=== PATIENT | male | born 1970 | race Caucasian/White ===

== ENCOUNTER 2017-05-31 19:45 | Emergency (ER) | payer OTHER ==
[2017-05-31 20:01] VITALS: BP 125/77; PULSE 65; TEMP 97.9; BMI 24.2
[2017-05-31] MEDS ORDERED: MAG HYDROX/AL HYDROX/SIMETH 30 ML UNIT-DOSE CUP PO ONE (20:03)
--- NOTE | 2017-05-31 20:03 | PDOC ---
Rapid Medical Evaluation Time Seen by Provider: 05/31/17 19:58 Medical Evaluation: Allergies Allergy/AdvReac Type Severity Reaction Status Date / Time No Known Allergies Allergy Verified 05/31/17 19:58 Vital Signs Temp Pulse Resp BP Pulse Ox 97.9 F 65 18 125/77 100 05/31/17 19:58 05/31/17 19:58 05/31/17 19:58 05/31/17 19:58 05/31/17 19:58 05/31/17 20:01 I have performed a brief in-person evaluation of the patient. The patient presents with chief complaint of: abdominal discomfort with nausea and dizziness x 4 days. Reports nausea but no vomiting, diarrhea or constipation. DEscribes stomach discomfort as burning Pertinent physical exam findings are: NAD lungs clear bilaterally abdominal tenderness in epigastric area I have ordered the following: cbc cmp saline lock The patient will proceed to the ED for further evaluation. 05/31/17 21:02
[2017-05-31] MEDS ORDERED: SODIUM CHLORIDE 1,000 ML IV STA (22:40)
[2017-05-31] MEDS ORDERED: ONDANSETRON 4 MG/2 ML VIAL IVPUSH STA (22:40)
--- NOTE | 2017-05-31 22:40 | PDOC ---
History of Present Illness - General History Source: Patient Exam Limitations: No Limitations - History of Present Illness Initial Comments: 05/31/17 23:51 The pt is a 47 yo M with PMHX of Pre-Diabetes who presents to the ED with abdominal pain for the past 4 days. Patient reports LUQ abdominal pain which he describes as burning associated with nausea. Patient denies taking any medications for relief and presents to the ED for further evaluation. Patient reports minimal EtOH use however denies smoking or IVDA. Patient denies chest pain, headache or dizziness. Patient denies fever, chills, vomit, diarrhea or constipation. Patient denies dysuria, frequency, urgency or hematuria. Patient denies sick contacts or recent travel. <Jovita Nieves - Last Filed: 06/01/17 01:48> <Perla Barraza - Last Filed: 06/01/17 01:53> - General Chief Complaint: Pain Stated Complaint: Lightheaded Time Seen by Provider: 05/31/17 19:58 Past History <Jovita Nieves - Last Filed: 06/01/17 01:48> - Past Medical History COPD: No Diabetes: Yes (pre-diabetic) - Suicide/Smoking/Psychosocial Hx Smoking Status: No Smoking History: Never smoked Number of Cigarettes Smoked Daily: 0 <Perla Barraza - Last Filed: 06/01/17 01:53> - Past Medical History Allergies/Adverse Reactions: Allergies Allergy/AdvReac Type Severity Reaction Status Date / Time No Known Allergies Allergy Verified 05/31/17 19:58 Home Medications: Ambulatory Orders No Home Medications 0 dose .ROUTE UTDICT 06/16/12 Omeprazole 20 mg PO DAILY #7 tablet. 06/01/17 Ondansetron [Zofran Odt -] 4 mg SL TID PRN #12 od.tablet 06/01/17 Review of Systems - Review of Systems Able to Perform ROS?: Yes Comments:: 06/01/17 00:01 CONSTITUTIONAL: Absent: fever, chills, diaphoresis, generalized weakness, malaise, loss of appetite HEENT: Absent: rhinorrhea, nasal congestion, throat pain, throat swelling, difficulty swallowing, mouth swelling, ear pain, eye pain, visual changes CARDIOVASCULAR: Absent: chest pain, syncope, palpitations, irregular heart rate, lightheadedness , peripheral edema RESPIRATORY: Absent: cough, shortness of breath, dyspnea with exertion, orthopnea, wheezing, stridor, hemoptysis GASTROINTESTINAL: +abdominal pain, nausea Absent: abdominal distension, vomiting, diarrhea, constipation, melena, hematochezia GENITOURINARY: Absent: dysuria, frequency, urgency, hesitancy, hematuria, flank pain, genital pain MUSCULOSKELETAL: Absent: myalgia, arthralgia, joint swelling SKIN: Absent: rash, itching, pallor HEMATOLOGIC/IMMUNOLOGIC: Absent: easy bleeding, easy bruising, lymphadenopathy, frequent infections ENDOCRINE: Absent: unexplained weight gain, unexplained weight loss, heat intolerance, cold intolerance NEUROLOGIC: Absent: headache, focal weakness or paresthesias, dizziness, unsteady gait, seizure, mental status changes, bladder or bowel incontinence PSYCHIATRIC: Absent: anxiety, depression, suicidal or homicidal ideation, hallucinations. <Jovita Nieves - Last Filed: 06/01/17 01:48> *Physical Exam - Vital Signs Last Vital Signs Temp Pulse Resp BP Pulse Ox 97.9 F 65 18 125/77 100 05/31/17 19:58 05/31/17 19:58 05/31/17 19:58 05/31/17 19:58 05/31/17 19:58 - Physical Exam Comments: 06/01/17 00:03 GENERAL: Well developed, well nourished. Awake and alert. No acute distress. HEENT: Normocephalic, atraumatic. PERRLA, EOMI. No conjunctival pallor. Sclera are non- icteric. Moist mucous membranes. Oropharynx is clear. NECK: Supple. Full ROM. No JVD. Carotid pulses 2+ and symmetric, without bruits. No thyromegaly. No lymphadenopathy. CARDIOVASCULAR: Regular rate and rhythm. No murmurs, rubs, or gallops. Distal pulses are 2+ and symmetric. PULMONARY: No evidence of respiratory distress. Lungs clear to auscultation bilaterally. No wheezing, rales or rhonchi. ABDOMINAL: +Epigastric tenderness. Soft. Non-tender. Non-distended. No rebound or guarding. No organomegaly. Normoactive bowel sounds. MUSCULOSKELETAL Normal range of motion at all joints. No bony deformities or tenderness. No CVA tenderness. EXTREMITIES: No cyanosis. No clubbing. No edema. No calf tenderness. SKIN: Warm and dry. Normal capillary refill. No rashes. No jaundice. NEUROLOGICAL: Alert, awake, appropriate. Cranial nerves 2-12 intact. No deficits to light touch and temperature in face, upper extremities and lower extremities. No motor deficits in the in face, upper extremities and lower extremities. Normoreflexic in the upper and lower extremities. Normal speech. Toes are down-going bilaterally. Gait is normal without ataxia. PSYCHIATRIC: Cooperative. Good eye contact. Appropriate mood and affect. <Jovita Nieves - Last Filed: 06/01/17 01:48> - Vital Signs Last Vital Signs Temp Pulse Resp BP Pulse Ox 97.9 F 65 18 125/77 100 05/31/17 19:58 05/31/17 19:58 05/31/17 19:58 05/31/17 19:58 05/31/17 19:58 <Perla Barraza - Last Filed: 06/01/17 01:53> ED Treatment Course - LABORATORY CBC & Chemistry Diagram: 05/31/17 22:40 05/31/17 22:43 - ADDITIONAL ORDERS Additional order review: 05/31/17 22:40 RBC 5.36 MCV 82.0 MCHC 33.0 RDW 13.4 MPV 7.3 L D Neutrophils % 47.1 Lymphocytes % 43.0 H Monocytes % 8.4 Eosinophils % 0.8 D Basophils % 0.7 - Medications Given in the ED: ED Medications Discontinued Medications Generic Name Dose Route Start Last Admin Trade Name Freq PRN Reason Stop Dose Admin Sodium Chloride 1,000 mls @ 1,000 mls/hr 05/31/17 22:40 05/31/17 22:46 Normal Saline - IV 05/31/17 23:39 1,000 mls/hr ASDIR STA Administration Ondansetron HCl 4 mg 05/31/17 22:40 05/31/17 22:46 Zofran Injection IVPUSH 05/31/17 22:41 4 mg ONCE STA Administration Pantoprazole Sodium 40 mg 05/31/17 22:43 05/31/17 22:49 Protonix Iv IVPUSH 05/31/17 22:44 40 mg ONCE ONE Administration <Jovita Nieves - Last Filed: 06/01/17 01:48> - LABORATORY CBC & Chemistry Diagram: 05/31/17 22:40 05/31/17 22:43 <Perla Barraza - Last Filed: 06/01/17 01:53> *DC/Admit/Observation/Transfer - Attestations Scribe Attestion: 06/01/17 00:05 Documentation prepared by Jovita Nieves, acting as medical bill processor for Perla Barraza MD <Jovita Nieves - Last Filed: 06/01/17 01:48> <Perla Barraza - Last Filed: 06/01/17 01:53> Diagnosis at time of Disposition: Gastritis Qualifiers: Gastritis type: unspecified gastritis Chronicity: acute Gastritis bleeding: without bleeding Qualified Code(s): K29.00 - Acute gastritis without bleeding - Discharge Dispostion Disposition: HOME Condition at time of disposition: Stable - Prescriptions Prescriptions: Omeprazole 20 mg PO DAILY #7 tablet. Ondansetron [Zofran Odt -] 4 mg SL TID PRN #12 od.tablet PRN Reason: Nausea And/Or Vomiting - Patient Instructions Printed Discharge Instructions: DI for Gastritis Additional Instructions: please diamond picker your medication at the pharmacy
[2017-05-31] MEDS ORDERED: PANTOPRAZOLE SODIUM 40 MG VIAL IVPUSH ONE (22:43)
[2017-05-31] MEDS ORDERED: PANTOPRAZOLE SODIUM 40 MG VIAL ONE (22:47)
[2017-05-31 22:58] LABS: BASO % 0.7 % (0-2.0); EOS % 0.8 % (0-4.5); HEMATOCRIT 43.9 % (35.4-49); HEMOGLOBIN 14.5 GM/dL (11.7-16.9); MCH 27.1 pg (25.7-33.7); MEAN PLT VOLUME 7.3 fl (7.5-11.1); MONO % 8.4 % (3.8-10.2); NEUT % 47.1 % (42.8-82.8); PLATELET COUNT 247 K/MM3 (134-434); RBC 5.36 M/mm3 (4.00-5.60); RDW 13.4 % (11.9-15.9); WHITE BLOOD COUNT 8.3 K/mm3 (4.0-10.0)
[2017-06-01 00:16] LABS: ALBUMIN 4.3 g/dl (3.4-5.0); ANION GAP 9 (8-16); BILIRUBIN,TOTAL 0.9 mg/dL (0.2-1.0); CALCIUM 8.6 mg/dL (8.5-10.1); CHLORIDE 107 mmol/L (98-107); CO2 24 mmol/L (21-32); CREATININE 0.8 mg/dL (0.7-1.3); GLUCOSE,RANDOM 86 mg/dL (74-106); LIPASE 166 U/L (73-393); SGPT/ALT 26 U/L (12-78); SODIUM 140 mmol/L (136-145); TOT PROT 7.1 g/dl (6.4-8.2)
[2017-06-01] MEDS ORDERED: MAG HYDROX/AL HYDROX/SIMETH 30 ML UNIT-DOSE CUP ONE (00:18)
[2017-06-01 00:25] LABS: ALK PHOS 75 U/L (45-117); BLOOD UREA NITROGEN 21 mg/dL (7-18); SGOT/AST 13 U/L (15-37)
== END 2017-06-01 02:02 | disposition home or self-care (01) ==
LOC: JER 19:45
DX: K29.00 Acute gastritis without bleeding (principal)
CPT/HCPCS: 36415; 80053; 83690; 85025; 99283-25; J7030